=== PATIENT | female | born 1935 | race Caucasian/White ===

== ENCOUNTER → 2017-07-29 20:55 | Observation (INO) ==
--- OUTSIDE RECORDS SUMMARY | 2017-07-28 22:05 | External Medical Summary | CCD ---
:1935 Author Name SAMI RIBERA Tierra Address [address] [place] [id number] Care Team Providers Name Role Phone JIN GLOVER Attending Physician Unavailable Vital Signs Unknown or Not Available. Allergies Unknown or Not Available. Procedures Unknown or Not Available. History of Immunizations Unknown or Not Available. Problems Unknown or Not Available. Results Unknown or Not Available. Active Medications Unknown or Not Available. Medications Administered During Visit Unknown or Not Available. Encounters Encounter Diagnosis Diagnosis Code Start Date OTH SCREEN MAMMO FOR MAL V7612 04/28/2015 NEOPLASM Social History Smoking Status Code Start Date End Date Unknown if ever smoked [id number] Patient Decision Aids Unknown or Not Available. Discharge Instructions You were admitted to [facility] on with a principal diagnosis of OTH SCREEN MAMMO FOR MAL NEOPLASM. You were discharged from [facility] on 04/28/2015. Should you have any questions prior to discharge, please contact a member of your healthcare team. If you have left the hospital and have any questions, please contact your primary care physician. Chief Complaint and Reason For Visit Chief Complaint Date of Onset MM BILAT SCREEN Function Status Unknown or Not Available. Plan of Care Unknown or Not Available. Referral/Transition of Care Unknown or Not Available.
--- OUTSIDE RECORDS SUMMARY | 2017-07-28 22:05 | External Medical Summary | CCD ---
:1935 Author Name LUZ MARINA LOUIE Address [address], [place] [id number] Care Team Providers Name Role Phone CHANDRAKANT REESE Attending Physician Unavailable Vital Signs Unknown or Not Available. Allergies Unknown or Not Available. Procedures Unknown or Not Available. History of Immunizations Unknown or Not Available. Problems Unknown or Not Available. Results LIPID PANEL - Collect Date/Time: 06/18/2016 08:00 Test Name Code Test Result Test Units Test Ref Range CHOLESTEROL 202 mg/dL L=0 H=200 TRIGLYCERIDES 210 mg/dL L=30 H=150 HDL 67 mg/dL L=50 H=60 LDL, CALC 93 mg/dL L=0 H=100 VLDL 42 mg/dL L=0 H=40 CHOL/HDL RISK 3.0 RATIO L=0.0 H=4.4 PT FASTING: YES N/A Active Medications Unknown or Not Available. Medications Administered During Visit Unknown or Not Available. Encounters Encounter Diagnosis Diagnosis Code Start Date Pure hypercholesterolemia, E7800 06/18/2016 unspecified Social History Smoking Status Code Start Date End Date Unknown if ever smoked [id number] Patient Decision Aids Unknown or Not Available. Discharge Instructions You were admitted to [facility] on 06/18/2016 07:59 with a principal diagnosis of Pure hypercholesterolemia, unspecified You had the following tests done: LIPID PANEL You were discharged from [facility] on 06/18/2016 07:59 Should you have any questions prior to discharge, please contact a member of your healthcare team. If you have left the hospital and have any questions, please contact your primary care physician. Chief Complaint and Reason For Visit Chief Complaint Date of Onset LAB Function Status Unknown or Not Available. Plan of Care Unknown or Not Available. Referral/Transition of Care Unknown or Not Available.
--- OUTSIDE RECORDS SUMMARY | 2017-07-28 22:05 | External Medical Summary | Continuity of Care Document ---
:1935 Demographics Phone Unavailable Preferred Language Unknown Marital Status Unknown Jehovah'S Witness Affiliation Unknown Race Unknown Ethnic Group Unknown Author Organization [facility] Allergies There is no data. Medications There is no data. Problems There is no data. Procedures There is no data. Results There is no data. Encounters ACCT No. Visit Discharge Status Pt. Type Provider Facility Loc./Unit Complaint Date/Time [id number] 07/23/2016 ACT Unknown 1207 08:54:00 [id number] 07/10/2016 ACT Unknown 1122 12:41:00 [id number] 06/17/2016 ACT Unknown 1003 14:16:00 [id number] 06/17/2016 ACT Unknown 1028 14:06:00 [id number] 08/31/2015 ACT Unknown 1001 17:47:00 [id number] 05/30/2014 ACT Unknown 1014 14:19:00 [id number] 12/15/2013 ACT Unknown 0507 09:35:00 [id number] 11/11/2013 ACT Unknown 0402 14:04:00
--- OUTSIDE RECORDS SUMMARY | 2017-07-28 22:05 | External Medical Summary | CCD ---
:1935 Author Name LUZ MARINA LOUIE Address [address], [place] [id number] Care Team Providers Name Role Phone MOO GIRON Attending Physician Unavailable Vital Signs Unknown or Not Available. Allergies Unknown or Not Available. Procedures Unknown or Not Available. History of Immunizations Unknown or Not Available. Problems Unknown or Not Available. Results Unknown or Not Available. Active Medications Unknown or Not Available. Medications Administered During Visit Unknown or Not Available. Encounters Encounter Diagnosis Diagnosis Code Start Date Spondylolisthesis, lumbar M4316 04/16/2016 region Social History Smoking Status Code Start Date End Date Unknown if ever smoked [id number] Patient Decision Aids Unknown or Not Available. Discharge Instructions You were admitted to [facility] on 04/16/2016 09:25 with a principal diagnosis of Spondylolisthesis, lumbar region You were discharged from [facility] on 05/10/2016 23:59 Should you have any questions prior to discharge, please contact a member of your healthcare team. If you have left the hospital and have any questions, please contact your primary care physician. Chief Complaint and Reason For Visit Chief Complaint Date of Onset PT Function Status Unknown or Not Available. Plan of Care Unknown or Not Available. Referral/Transition of Care Unknown or Not Available.
--- OUTSIDE RECORDS SUMMARY | 2017-07-28 22:05 | External Medical Summary | CCD ---
:1935 Author Name LUZ MARINA LOUIE Address [address], [place] [phone] Care Team Providers Name Role Phone MOO [...] Diagnosis Code Start Date Spondylolisthesis, lumbar M4316 05/11/2016 region Social History Smoking Status Code Start Date End Date Unknown if ever smoked [id number] Patient Decision Aids Unknown or Not Available. Discharge Instructions You were admitted to [facility] on 05/11/2016 00:01 with a principal diagnosis of Spondylolisthesis, lumbar region You were discharged from [facility] Should you have any questions prior to discharge, please contact a member of your healthcare team. If you have left the hospital and have any questions, please contact your primary care physician. Chief Complaint and Reason For Visit Chief Complaint Date of Onset RECURRING PHT Function Status Unknown or Not Available. Plan of Care Unknown or Not Available. Referral/Transition of Care Unknown or Not Available.
--- OUTSIDE RECORDS SUMMARY | 2017-07-28 22:05 | External Medical Summary | CCD ---
:1935 Author Name LUZ MARINA LOUIE Address [address], [place] [id number] Care Team Providers Name Role Phone CHANDRAKANT REESE Attending Physician Unavailable Vital Signs Unknown or Not Available. Allergies Unknown or Not Available. Procedures Unknown or Not Available. History of Immunizations Unknown or Not Available. Problems Unknown or Not Available. Results COMP METABOLIC - Collect Date/Time: 06/05/2016 09:50 Test Name Code Test Result Test Units Test Ref Range GLUCOSE 97 mg/dL L=70 H=110 BUN 22 mg/dL L=7 H=18 CREATININE 1.03 mg/dL L=0.60 H=1.30 AGE 80 YEARS GFR 51.7 SODIUM 138 mmol/L L=136 H=145 POTASSIUM 3.9 mmol/L L=3.5 H=5.1 CHLORIDE 100 mmol/L L=98 H=107 CO2 35 mmol/L L=21 H=32 CALCIUM 9.2 mg/dL L=8.5 H=10.1 AST 23 U/L L=15 H=37 ALT 29 U/L L=12 H=78 ALKALINE PHOS 73 U/L L=50 H=136 TOTAL PROTEIN 7.3 g/dL L=6.4 H=8.2 ALBUMIN 4.1 g/dL L=3.4 H=5.0 TOTAL BILI 0.70 mg/dL L=0.00 H=1.00 Active Medications Unknown or Not Available. Medications Administered During Visit Unknown or Not Available. Encounters Encounter Diagnosis Diagnosis Code Start Date Essential (primary) hypertension I10 06/05/2016 Social History Smoking Status Code Start Date End Date Unknown if ever smoked [id number] Patient Decision Aids Unknown or Not Available. Discharge Instructions You were admitted to [facility] on 06/05/2016 09:24 with a principal diagnosis of Essential (primary) hypertension You had the following tests done: COMP METABOLIC You were discharged from [facility] on 06/05/2016 09:25 Should you have any questions prior to discharge, please contact a member of your healthcare team. If you have left the hospital and have any questions, please contact your primary care physician. Chief Complaint and Reason For Visit Chief Complaint Date of Onset MAMMOGRAPHY LAB Function Status Unknown or Not Available. Plan of Care Unknown or Not Available. Referral/Transition of Care Unknown or Not Available.
[2017-07-28 22:17] VITALS: BMI 27.9
[2017-07-28 23:29] VITALS: RESP 16
--- NOTE | 2017-07-29 08:33 | XRay Report ---
Indication: chest pain PROCEDURE: XR chest 1V: Encounter: Initial Comparison: None FINDINGS: The lungs are clear. There is no abnormal airspace opacity, pleural effusion or pneumothorax identified. The heart size, pulmonary vasculature and mediastinum are within normal limits. No significant skeletal abnormality is seen. IMPRESSION: No acute cardiopulmonary abnormality. .
--- NOTE | 2017-07-29 09:24 | Cardiology History & Physical ---
History of Present Illness Chief complaint: epigastric pain, nausea HPI: Frances is an 81 year old female patient of Dr. Monson who [facility] of epigastric pain, not feeling well and nausea for several days, last evening she reported chills. She was evaluated and found to have an elevated troponin of 0.110 and EKG with subtle ST changes in inferior leads. She has a history of HTN, and HLD but has never been evaluated by a applications coordinator. She was transferred by EMS to [facility] for further Cardiac work-up in the care of Dr. Cedeno. Review of Systems - Constitutional Constitutional: Present: chills, fatigue - EENMT Eyes: Absent: change in vision Balance: Absent: vertigo Mouth/Throat: Absent: sore throat - Cardiovascular Cardiovascular: Absent: chest pain, palpitations, syncope, dyspnea on exertion, heart murmur Rhythm: Absent: abnormal rhythm Vascular: Present: intermittent claudication, varicosities. Absent: pedal edema - Respiratory Respiratory: Absent: cough, dyspnea, dyspnea on exertion - Gastrointestinal Gastrointestinal: Present: abdominal pain (epigastric), nausea. Absent: constipation, diarrhea, vomiting - Genitourinary Genitourinary: Absent: dysuria - Integumentary/Breasts Integumentary: Absent: rash - Neurological Neurological: Absent: dizziness - Endocrine Endocrine: Absent: palpitations PFSH Patient Stated Medical History Peripheral Neuropathy Yes Cataracts Yes Dental Problems Yes: partial plate Hearing Loss Yes: " a little [place]" Hypertension Yes Other Yes: small bladder, urgency Osteoarthritis Yes: in hands hyperlipidemia Yes Surgical History: Total abdominal hysterectomy. Bilateral DANII. Tonsilectomy. Cataract extraction. Reconstructive repair of left elbow Family History: Sister: CAD with coronary stent, late 60s Brother: Obesity, used Nitros No family history of DM, CVA - Social History Smoking status: Former smoker Substance use type: does not use Alcohol intake frequency: 3 or more drinks per day (bourbon with water and Seirra Mist) Housing: house Household members: spouse Current occupational status: retired Current residence: Apartment/Private Home Medications Home Medications Medication Instructions Recorded Confirmed Type Ascorbic Acid [Vitamin C] 1 tab PO DAILY #0 02/27/16 07/28/17 History Aspirin [Aspir 81] 2 tab PO DAILY #30 tab 02/27/16 07/28/17 History Calcium Carbonate/Vitamin D3 1 tab PO DAILY #0 02/27/16 07/28/17 History [Caltrate 600 Plus D3 Tablet] Estradiol 0.25 tab PO DAILY PRN #0 tab 02/27/16 07/28/17 History Gabapentin 2 cap PO HS #0 cap 02/27/16 07/29/17 History Lisinopril/Hydrochlorothiazide 1 tab PO DAILY #0 tab 02/27/16 07/28/17 History [Lisinopril-Hctz 10-12.5 mg Tab] Multivitamin [Multi-Day Vitamins] 1 tab PO DAILY #30 tab 02/27/16 07/28/17 History Mineral Point-3/Dha/Epa/Fish Oil (Fish Oil 1 tab PO DAILY #0 02/27/16 07/28/17 History 500 mg Softgel) Omeprazole Magnesium [Prilosec Otc] 1 tab PO PRN #0 tab 02/27/16 07/28/17 History Simvastatin 40 mg PO DAILY #0 tab 02/27/16 07/28/17 History Solifenacin Succinate [Vesicare] 10 mg PO DAILY #0 tab 02/27/16 07/28/17 History cephALEXin [Cephalexin] 1 tab PO PRN #0 tab 02/27/16 07/28/17 History Calcium Carbonate/Magnesium Ox 1 each PO DAILY 07/29/17 07/29/17 History [Super Chente-Mag Tablet] Prevagen 1 tab PO DAILY 07/29/17 07/29/17 History Safflower Oil 500 ml MC DAILY 07/29/17 07/29/17 History Allergies Allergy/AdvReac Type Severity Reaction Status Date / Time Sulfa (Sulfonamide Allergy Mild HIVES Verified 07/28/17 22:29 Antibiotics) SULFUR Allergy Mild HIVES Uncoded 07/28/17 22:29 Exam Vital signs: Temperature 97.4 F 07/29/17 07:58 Pulse Rate 67 07/29/17 08:00 Respiratory Rate 16 07/29/17 07:58 Blood Pressure 152/77 H 07/29/17 07:58 Pulse Oximetry 96 07/29/17 07:58 - Constitutional no acute distress, well nourished, cooperative - Routine HEENT Exam Head: Present: normocephalic ENT: Present: mucous membranes moist - Routine Neck Exam Present: carotid bruit. Absent: JVD - Routine Chest/Breast/Axilla Exam Chest wall: Absent: tenderness - Routine Respiratory Exam Present: CTA bilaterally. Absent: rales, wheezes - Routine Cardiovascular Exam Present: RRR, murmur. Absent: JVD - Routine Abdominal Exam Present: soft, normoactive bowel sounds - Routine Extremities Exam Present: no edema, pulses intact - Routine Skin Exam Present: intact, dry, warm - Routine Neurological Exam Present: alert, oriented X3 - Routine Psychiatric Exam Present: normal affect, normal thought process Results 07/29/17 04:25 07/29/17 04:25 Cardiac Enzymes 07/28/17 07/29/17 Range/Units 22:42 04:25 Troponin I < 0.012 < 0.012 (0-0.12) ng/ml Lipids 07/29/17 Range/Units 04:25 Triglycerides 240 H (35-135) MG/DL Cholesterol 173 (132-199) MG/DL HDL Cholesterol 57 (40-60) MG/DL Cholesterol/HDL Ratio 3.0 (0-4.0) RATIO CBC 07/29/17 Range/Units 04:25 WBC 6.4 (4.5-11.0) T/MM3 RBC 4.87 (4.00-5.20) M/MM3 Hgb 15.2 (12-16) GM/DL Hct 44.8 (36-46) % Plt Count 215 (130-400) T/MM3 Neut # (Auto) 3.0 (1.8-7.7) T/MM3 Lymph # (Auto) 2.7 (1-4.8) T/MM3 Scott # (Auto) 0.5 (0-0.8) T/MM3 Eos # (Auto) 0.1 (0-0.5) T/MM3 Baso # (Auto) 0.0 (0-0.2) T/MM3 Comprehensive Metabolic Panel 07/29/17 Range/Units 04:25 Sodium 141 (134-144) MEQ/L Potassium 3.7 (3.6-5) MEQ/L Chloride 98 (98-107) MEQ/L Carbon Dioxide 33 H (22-30) MEQ/L BUN 14.0 (7-17) MG/DL Creatinine 1.1 (0.7-1.2) MG/DL Glucose 99 (65-110) MG/DL Calcium 9.5 (8.4-10.2) MG/DL Intake and Output 07/28/17 07/29/17 07/29/17 22:59 06:59 14:59 Other: # Voids 1 Weight 162 lb 14.746 oz 162 lb 4.163 oz Patient Weight 07/30/17 06:59 Weight 162 lb 4.163 oz - Imaging and Cardiology Imaging & Cardiology Narrative: Date of Exam: 07/28/17 Ordering Provider: Lia Andrews APRN Type of Exam(s): XR chest 1V Reason for Exam(s): chest pain Indication: chest pain PROCEDURE: XR chest 1V: Encounter: Initial Comparison: None FINDINGS: The lungs are clear. There is no abnormal airspace opacity, pleural effusion or pneumothorax identified. The heart size, pulmonary vasculature and mediastinum are within normal limits. No significant skeletal abnormality is seen. IMPRESSION: No acute cardiopulmonary abnormality. 07/29/17 10:13 EKG interpretations - EKG EKG results cardiology: sinus rhythm - Blocks, axis, hypertrophy, ST abn Repolarization changes or abnormalities: nonspecific abnormality, ST segment, and/or T wave Hospital Course This is a general summary of the patient's hospital course. For more details refer to the complete medical record. Time spent with patient: 25 - 35 minutes DVT Prophylaxis: Lovenox Assessment and Plan - Attestation Attestation Narrative: 08/01/17 14:08 Recommendation After examining the patient I agree with the above assessment. I am involved in the formulation of the patient's plan of care. - Assessment and Plan (1) Abnormal EKG Status: Acute EKG with ST changes concerning for ischemia. Plan left and right heart cath this afternoon with possible percutaneous intervention. (2) Epigastric abdominal pain Status: Acute
--- NOTE | 2017-07-29 10:57 | Ultrasound Report ---
Indication: epigastric pain PROCEDURE: US gall bladder: Encounter: Initial Comparison: None Technique: Grayscale and color Doppler sonographic imaging of the right upper quadrant of the abdomen was performed. Findings: Hepatic parenchyma is homogeneous without evidence for focal mass. The gallbladder small amount of echogenic sludge or stone debris. There is no wall thickening, pericholecystic fluid or sonographic Sharpe's sign. Both the intra and extrahepatic biliary system are of normal caliber with the common duct measuring 6 mm in dimension. Visualized portions of the head and body of the pancreas are unremarkable. The right kidney is present without collecting system dilatation. The right kidney measures 10.7 cm in length. Impression: Small amount of echogenic sludge or stone debris in the gallbladder without evidence for acute cholecystitis. .
--- NOTE | 2017-07-29 17:15 | Echocardiogram ---
DATE OF PROCEDURE July 29, 2017 This is a two-dimensional echo with spectral Doppler, color-flow and M-mode. It was obtained in a patient with chest pain. Left atrial dimension is normal. Left ventricular end-diastolic dimension is normal. Left ventricular wall thickness is increased. LV systolic function is normal with ejection fraction of 70%. Right atrium is normal. Right ventricle is normal. Aortic root dimension is normal. Mitral valve annulus is calcified. Mitral valve leaflets are sclerotic with no stenosis. Mild mitral regurgitation is present. Aortic valve shows fibrocalcific changes with restriction on opening motion. Transaortic velocities are increased with peak velocity of 3.2 with a peak gradient of 40 and mean gradient of 25. Aortic valve area is calculated at 0.93 cm2. Tricuspid valve shows mild tricuspid regurgitation with normal estimated pulmonary artery systolic pressure of 22. Pulmonary valve shows mild pulmonary insufficiency. There is no pericardial effusion. IMPRESSION 1. Normal LV systolic function with ejection fraction of 70%. 2. Concentric left ventricular hypertrophy. 3. [id number] aortic stenosis with a valve area of 0.93 cm2. 4. Mitral annulus calcification with mitral sclerosis and mild mitral regurgitation. 5. Mild tricuspid regurgitation with normal estimated pulmonary artery systolic pressure of 22. 6. Mild pulmonary insufficiency. MTDD
--- NOTE | 2017-07-29 18:11 | Cardiology Report ---
DATE OF PROCEDURE July 29, 2017 The patient is a pleasant 81-year-old lady who was admitted with chest pressure and tightness suggestive of unstable angina and was found to have also aortic stenosis by echo. She was referred for further evaluation by cardiac catheterization and possible intervention. Informed consent was obtained after explaining the procedure and the potential risks to the patient who agreed to proceed with the procedure. PROCEDURE 1. Left heart catheterization. 2. Coronary angiography. 3. Left ventriculography. 4. Right heart catheterization. 5. Right femoral angiography to visualize the vessel for closure device. 6. Successful Mynx deployment for hemostasis. TECHNIQUE She was prepped and draped in the usual sterile techniques. 1% lidocaine was used for local anesthesia. Conscious sedation was performed using Versed and fentanyl. Venous access was obtained into right femoral vein with placement of a 7-Romanian venous sheath. Using modified Seldinger technique, arterial access was obtained into the right femoral artery with placement of a 6-Romanian arterial sheath. LEFT VENTRICULOGRAPHY Left ventriculography in single-plane SAHFFER shallow projection showed normal LV systolic function with ejection fraction of about 65% with no mitral regurgitation and about 10 mm of gradient across the aortic valve. LVEDP was about 10. CORONARY ANGIOGRAPHY Left main was free of significant lesions. The left anterior descending artery had mid 60%-70% stenosis with some calcification. First diagonal also had about 80% ostial stenosis. Left circumflex artery was totally occluded in mid segment. Right coronary artery had 80%-90% stenosis in mid segment. HEMODYNAMIC DATA Hemodynamic data were obtained by advancing a [place] catheter through the venous system into the pulmonary artery position and measuring pressures and obtaining samples. Pulmonary capillary wedge pressure mean of 21, pulmonary artery pressure was 50/ 28 with a mean of 37, right ventricular pressure was 63/15 with an EDP of 18, and right atrial mean pressure of 16. Aortic saturation was 90% and mixed venous saturation was 65%. Thermodilution cardiac output was 4.85 L/min with an index of 2.7 L/min/m2. Krista cardiac output was 2.65 L/min with an index of 1.5 L/min/m2. Aortic valve area was calculated at 0.67 cm2 by Krista and at 1.22 cm2 by thermodilution. Right femoral angiography showed patent common femoral, proximal SFA and profunda and therefore Mynx was used for hemostasis. IMPRESSION 1. Multivessel coronary artery disease. 2. Normal LV systolic function with ejection fraction of about 65%. 3. Moderate elevation in right heart pressures. 4. Aortic stenosis with a valve area anywhere from 0.67 to 1.22 cm2. 5. Successful Mynx deployment for hemostasis. PLAN Will transfer the patient and consult Surgery for possible coronary artery bypass graft and possible valve replacement. However, one might consider transesophageal echocardiogram prior to valve replacement to further evaluate the aortic valve since there is a discrepancy between aortic valve area by Krista and thermodilution. MTDD
[2017-07-29 20:46] VITALS: BP 117/59; PULSE 82; TEMP 97.9; O2SAT 95
[~2017-07-29 20:55] MED LIST: ACETAMINOPHEN 325 MG TABLET PO PRN; ASPIRIN *EC* 81 MG TABLET PO SCH; ASPIRIN 81 MG CHEWABLE TABLET PO SCH; ATROPINE 1 MG/ML INJECTION IVP PRN; BISACODYL 10 MG SUPPOSITORY RECTALLY PRN; Bisacodyl EC TAB 5 MG TABLET PO PRN; CALCIUM CARBONATE 600 MG TABLET PO SCH; CALCIUM CARBONATE PO SCH; FentaNYL 100 MCG/2 ML INJECTION ONE; HCTZ PO SCH; HEPARIN 1,000 UNITS/500 ML PREMIX (*CVL ONLY*) IV ONE; HEPARIN 1,000unit/ml INJECTION 10ml ONE; HYDRALAZINE 20 MG/ML INJECTION ONE; HYDROCODONE/APAP 7.5 MG/325 MG TABLET PO PRN; LIDOCAINE 1% (10mg/ml) 30ml SDV INJ ONE; LISINOPRIL PO SCH; LORazepam 0.5 MG TABLET PO PRN; MAG-AL + SIM ORAL LIQUID 30ml PO PRN; MAGNESIUM OX PO SCH; METOCLOPRAMIDE 10mg/2ml INJECTION IVP PRN; MIDAZOLAM 2mg/2ml INJECTION ONE; MORPHINE SULFATE 10 MG SYRINGE IVP PRN; MORPHINE SULFATE 4mg INJECTION IVP PRN; NITROGLYCERIN 0.4 MG SUBLINGUAL TABLET SL PRN; NS 1,000 ML IV SCH; OMEPRAZOLE 20 MG CAPSULE PO SCH; OMEPRAZOLE MAGNESIUM PO SCH; ONDANSETRON 4 MG/2 ML INJECTION IVP PRN; POM GABAPENTIN 300 MG CAPSULE PO SCH; POM SIMVASTATIN 40 MG TABLET PO SCH; PROMETHAZINE 25 MG INJECTION IVP PRN; [UNRECOGNIZED DRUG - OTHER] PO SCH
== END | disposition short-term general hospital (02) ==
LOC: SRG
PROVIDERS: ADMIT Internal Medicine Cardiovascular Disease; ATTEND Internal Medicine Cardiovascular Disease